=== PATIENT | male | born 1990 | race Caucasian/White ===

== ENCOUNTER 2016-08-25 15:47 | Inpatient (IN) | payer OTHER ==
--- NOTE | ~2016-08-25 | DS ---
Unit #: [id number] #: [id number] Patient: KELLY DIA [id number] [address] [address] [id number] MR#: [id number] NAME: KELLY DIA. ROOM: 241 Age: 25 Sex: M Admission Date: 08/26/2016 : 1990 Discharge Date: Attending Physician: Geri Dawn M.D. Primary Care Physician: No Primary Care Physician DISCHARGE SUMMARY DISCHARGE DIAGNOSES 1. Bilateral leg cellulitis. 2. Alcohol abuse. 3. Likely alcoholic hepatitis. 4. Leg swelling, likely from cellulitis: Rule out alcohol-related liver disease including cirrhosis. Needs outpatient followup. 5. Bilateral thumb numbness, likely from alcohol abuse. 6. Hypokalemia. 7. Thrombocytopenia. CONSULTATION None. PROCEDURES None. LAB DATA Sodium 138, potassium 3.7, creatinine 0.8. Liver enzymes normal at the time of discharge. Albumin 3.2, WBC 7.2, hemoglobin 13.7, platelets 139. Ultrasound of the legs negative for DVT. Vitamin B12 258, lactic acid 1.6. Urine drug screen negative. ALLERGIES None. DISCHARGE MEDICATIONS 1. Keflex 500 p.o. three times daily. 2. Lasix 20 mg p.o. daily p.r.n. swelling. HOSPITALIZATION COURSE 40-year-old admitted because of leg swelling and erythema. Bilateral leg cellulitis and started on vancomycin and Zosyn: Currently, leg swelling and erythema present. Continue with Keflex for five more days. Leg swelling, likely alcoholic liver disease including cirrhosis: Patient will receive Lasix. Liver enzymes normal. Follow with outpatient PCP with results and follow up and treatment. Unit #: [id number] #: [id number] Patient: KELLY DIA Bilateral hand and leg numbness, likely from alcohol abuse: Vitamin B12 level normal. Hypokalemia: Replace with p.o. potassium. Discharge home. Follow with family physician in one to two weeks time for bilateral leg cellulitis and liver disease. Dictated by... Kaitlyn Robison/christel TD: 08/27/2016 11:35 JOB #: [id number] DISCHARGE SUMMARY Page 1 of 1 X Geri Dawn MD DISCHARGE SUMMARY
--- NOTE | ~2016-08-25 | US84 ---
[id number] [address] [address] [id number] I MR#: [id number] Acc #: [id number] NAME: KELLY DIA : 1990 SEX: M STUDY DATE/TIME: 08/25/2016 19:34 UNIT: SEDOF ROOM: [facility] STUDY DESCRIPTION: US LE Veins Complete Micheal Stdy Attending Physician: Makenna Rankin M.D. Ordering Physician: Physician Non-Staff Primary Care Physician: Primary Care Physician No MEDICAL IMAGING REPORT This report is preliminary unless electronic signature is present. EXAM Bilateral lower extremity venous ultrasound HISTORY Bilateral ankle pain and redness and swelling for 6 months. TECHNIQUE Venous ultrasound examination of both lower extremities was performed using grayscale, spectral Doppler and color flow Doppler imaging. FINDINGS The examination is negative. There is no evidence of deep venous thrombus from the groin to the lower calf bilaterally. Visualized greater saphenous veins are also patent. IMPRESSION Negative examination. No evidence of lower extremity deep venous thrombosis. Dictated by... Angel Kilpatrick M.D. THIS IS AN ELECTRONICALLY VERIFIED REPORT Angel Kilpatrick M.D. at 08/26/2016 3:13 PM DFMargaret/caren TD: 08/26/2016 08:29 JOB #: [id number] MEDICAL IMAGING REPORT Page 1 of 1
--- NOTE | ~2016-08-25 | HP ---
Unit #: [id number] #: [id number] Patient: KELLY DIA [id number] [address] [address] [id number] I MR#: [id number] NAME: KELLY DIA. ROOM: 473 Age: 25 Sex: M Admission Date: 08/25/2016 : 1990 Attending Physician: Geri Dawn M.D. Primary Care Physician: No Primary Care Physician HISTORY AND PHYSICAL CHIEF COMPLAINT Bilateral leg swelling. HISTORY OF PRESENT ILLNESS 25-year-old with a history of severe alcohol abuse, admitted because of bilateral leg redness and swelling and pain. According to him, this started one day prior to admission, mostly ankle area and calf area, both legs. He did notice swelling since a few weeks. Currently, his pain is getting worse on ambulation, getting better with Percocet. Also, noticed redness over his ankle area since one day prior to admission. No insect bite. No fever, no chills. Has difficulty walking, pain while ambulating. Has ankle swelling since one day. No nausea, no vomiting, no diarrhea, no constipation. He has pain during urination. PAST MEDICAL HISTORY None. PAST SURGICAL HISTORY None. SOCIAL HISTORY Smokes one pack of cigarettes per day. He was a heavy alcohol, quit recently. No drug abuse. FAMILY HISTORY Negative for liver disease. ALLERGIES None. CURRENT HOME MEDICATIONS None. REVIEW OF SYSTEMS No headache, no visual changes. Complaining of numbness in both thumb areas and leg area chronically, likely from alcohol. Reviewed twelve point systems with him which are negative except as in HPI. PHYSICAL EXAMINATION VITAL SIGNS: Temperature 99, pulse 120, respirations 18, blood pressure 146/71. GENERAL: 25-year-old lying on bed, not in acute distress. Able to provide history. Alert and oriented x3. HEENT: Pupils equally reactive to light and accommodation. No pallor, no Unit #: [id number] #: [id number] Patient: KELLY DIA icterus. Dry mucosa present. NECK: Supple. HEART: S1, S2 heard. Regular rhythm. LUNGS: Clear to auscultation. No crackles, no rhonchi. ABDOMEN: Soft, nontender. Bowel sounds present. EXTREMITIES: Swelling present. Erythema present bilateral lower extremities near his calf area and ankle area. Pain on movement. NEUROLOGICAL: No focal neurological deficits. DIAGNOSTIC STUDIES IMAGING: Ultrasound of extremities negative for DVT. LABORATORY: Potassium 3.3, calcium 8.3, creatinine normal, WBC 12.4, hemoglobin 13.6, platelets 130. Urine drug screen negative. Urinalysis negative. D-dimer 225. ASSESSMENT AND PLAN 25-year-old admitted because of leg swelling and pain and redness. 1. Bilateral leg cellulitis: The patient was started on Zosyn and vancomycin. Blood cultures pending. 2. Alcohol abuse, likely with alcoholic hepatitis with mild elevation of liver enzymes, AST 27, ALT 44, alkaline phosphatase 109: Patient needs outpatient followup. 3. Bilateral hand and leg numbness, likely from alcohol abuse: I am going to check B12 level. 4. Hypokalemia: Replace with p.o. potassium. 5. Thrombocytopenia, likely secondary to alcohol abuse. Dictated by Kaitlyn Robison/christel TD: 08/26/2016 11:37 JOB #: [id number] HISTORY AND PHYSICAL Page 1 of 1 X Geri Dawn MD X HISTORY AND PHYSICAL
[~2016-08-25 15:47] MED LIST: AUGMENTIN875 MG PO; NO MEDICATIONS; PENICILLIN V P250 MG PO; VOLTAREN75 MG PO
[2016-08-25 16:30] LABS: BASOPHIL# 0.1 X10e3 (0-0.3); BASOPHIL% 0.7 % (0-2.5); EOSINOPHIL# 0.2 X10e3 (0-0.7); EOSINOPHIL% 0.9 % (0.0-7.0); HEMATOCRIT 44.3 % (38.0-50.0); LYMPHOCYTE# 2.8 X10e3 (1.0-3.5); LYMPHOCYTE% 14.5 % (17.0-45.0); MEAN CORPUSCULAR HEMOGLOBIN 30.5 PG (28-34); MEAN CORPUSCULAR HGB CONC 33.9 g/dL (30-36); MEAN PLATELET VOLUME 9.8 FL (6.5-11.5); MONOCYTE# 1.3 X10e3 (0-1.0); MONOCYTE% 6.9 % (3.0-12.0); NEUTROPHIL# 14.7 X10e3 (1.5-7.1); PLATELET COUNT 171 X10e3 (140-420); RED BLOOD COUNT 4.93 X10e (3.90-5.60); RED CELL DISTRIBUTION WIDTH 12.8 % (11.0-15.5)
[2016-08-25 16:33] LABS: DIFF IND NO
[2016-08-25 16:50] LABS: ALBUMIN SERUM 4.4 g/dL (3.5-5.0); BILIRUBIN,TOTAL 0.5 mg/dL (0.2-2.0); CALCIUM SERUM 8.8 mg/dL (8.4-10.2); CREATININE SERUM 0.8 mg/dL (0.6-1.4); GLOM FILT RATE Estimated 123.3 mL/min (>60); POTASSIUM 3.1 mmol/L (3.5-5.1); PROTEIN TOTAL SERUM 7.5 g/dL (6.0-8.3)
[2016-08-25 17:54] LABS: URINE SOURCE CLEAN CATCH
[2016-08-25 17:59] LABS: URINE APPEARANCE CLEAR; URINE BILIRUBIN NEG (NEG); URINE BLOOD NEG (NEG); URINE COLOR YELLOW; URINE GLUCOSE NEG (NORM); URINE KETONE TRACE (NEG); URINE LEUKOCYTE ESTERASE NEG (NEG); URINE NITRATE NEG (NEG); URINE PROTEIN NEG (NEG); URINE UROBILINOGEN 0.2 MG/DL (NORM)
[2016-08-25 18:03] LABS: MICRO INDICATED? NO
[2016-08-25 18:09] LABS: AMPHETAMINE NEG (NEG); BARBITURATES NEG (NEG); BENZODIAZEPINES NEG (NEG); COCAINE NEG (NEG); MARIJUANA NEG (NEG); OPIATES NEG (NEG); TRICYCLIC ANTIDEPRESSANTS NEG (NEG); U METHADONE NEG (NEG)
[2016-08-26 04:05] LABS: BASOPHIL# 0.1 X10e3 (0-0.3); BASOPHIL% 0.4 % (0-2.5); EOSINOPHIL# 0.2 X10e3 (0-0.7); EOSINOPHIL% 1.5 % (0.0-7.0); HEMATOCRIT 40.9 % (38.0-50.0); HEMOGLOBIN 13.6 gm/dL (13.0-16.0); LYMPHOCYTE# 2.5 X10e3 (1.0-3.5); LYMPHOCYTE% 20.6 % (17.0-45.0); MEAN CELL VOLUME 90.3 FL (83-96); MEAN CORPUSCULAR HEMOGLOBIN 30.1 PG (28-34); MEAN CORPUSCULAR HGB CONC 33.3 g/dL (30-36); MEAN PLATELET VOLUME 10.4 FL (6.5-11.5); MONOCYTE# 0.9 X10e3 (0-1.0); MONOCYTE% 7.5 % (3.0-12.0); NEUTROPHIL# 8.7 X10e3 (1.5-7.1); PLATELET COUNT 130 X10e3 (140-420); RED BLOOD COUNT 4.53 X10e (3.90-5.60); RED CELL DISTRIBUTION WIDTH 12.9 % (11.0-15.5); WHITE BLOOD COUNT 12.4 X10e3 (4.0-10.5)
[2016-08-26 04:06] LABS: DIFF IND NO
[2016-08-26 04:56] LABS: BUN/CREATININE RATIO 13.33; CALCIUM SERUM 8.3 mg/dL (8.4-10.2); CREATININE SERUM 0.6 mg/dL (0.6-1.4); GLOM FILT RATE Estimated 138.8 mL/min (>60); MAGNESIUM 1.8 mg/dL (1.6-3.0); POTASSIUM 3.3 mmol/L (3.5-5.1)
[2016-08-27 06:53] LABS: HEMATOCRIT 41.3 % (38.0-50.0); HEMOGLOBIN 13.7 gm/dL (13.0-16.0); MEAN CELL VOLUME 91.4 FL (83-96); MEAN CORPUSCULAR HEMOGLOBIN 30.2 PG (28-34); MEAN CORPUSCULAR HGB CONC 33.1 g/dL (30-36); MEAN PLATELET VOLUME 10.1 FL (6.5-11.5); RED BLOOD COUNT 4.52 X10e (3.90-5.60); RED CELL DISTRIBUTION WIDTH 12.8 % (11.0-15.5); WHITE BLOOD COUNT 7.2 X10e3 (4.0-10.5)
[2016-08-27 07:32] LABS: ALBUMIN SERUM 3.2 g/dL (3.5-5.0); BILIRUBIN,TOTAL 1.2 mg/dL (0.2-2.0); BUN/CREATININE RATIO 7.5; CALCIUM SERUM 8.5 mg/dL (8.4-10.2); CREATININE SERUM 0.8 mg/dL (0.6-1.4); GLOM FILT RATE Estimated 123.3 mL/min (>60); POTASSIUM 3.7 mmol/L (3.5-5.1); PROTEIN TOTAL SERUM 5.9 g/dL (6.0-8.3)
[2016-08-27] MEDS ORDERED: KEFLEX500 MG PO (12:53)
[2016-08-27] MEDS ORDERED: LASIX20 MG PO (12:53)
[2016-08-27 23:41] LABS: CHLAMYDIA TRACH Not Detected (Not Detected); N GONOR Not Detected (Not Detected)
== END 2016-08-27 14:30 | disposition home or self-care (01) | DRG 603 ==
LOC: SED 15:47 → SEDOF 22:38 → C2A 22:38 → C4C 22:38 → C2A 08-26 01:50 → SEDOF 08-26 01:50 → SED 08-26 01:50 → C2A 08-26 01:50 → SEDOF 08-26 01:55 → C4C 08-26 01:55 → C2A 08-26 11:38
PROVIDERS: Internal Medicine; Nurse Practitioner
DX: L03.116 Cellulitis of left lower limb (principal); D69.59 Other secondary thrombocytopenia; K70.10 Alcoholic hepatitis without ascites; L03.115 Cellulitis of right lower limb; F10.10 Alcohol abuse, uncomplicated; R20.0 Anesthesia of skin; E87.6 Hypokalemia; F17.210 Nicotine dependence, cigarettes, uncomplicated
CPT/HCPCS: 36415; 80048; 80053; 80202; 80307; 81003; 82607; 83605; 83735; 85025; 85027; 85379; 87040; 87491; 87591; 93970; 96374; 96375; 99285; J1650; J2270; J2405; J2543; J3370

== ENCOUNTER 2016-10-14 17:11 | Inpatient (IN) | payer OTHER ==
[~2016-10-14] VITALS: Ht 175.3 cm; Wt 102.1 kg
--- NOTE | ~2016-10-14 | DS ---
Unit #: [id number] #: [id number] Patient: KELLY DIA [id number] [facility] [address] [place] [address] [id number] I MR#: [id number] NAME: KELLY DIA. ROOM: [facility] Age: 26 Sex: M Admission Date: 10/14/2016 : 1990 Discharge Date: 10/17/2016 Attending Physician: Miles Patel M.D. Primary Care Physician: Primary Care Physician No DISCHARGE SUMMARY REASON FOR ADMISSION The patient is a 26-year-old white male, admitted to the [address] [place] [address] for detox. HOSPITAL COURSE The patient was admitted to the [address] [place] [address] and placed on routine detoxification protocol for alcohol and his stay in the hospital was a brief and uneventful once. With the completion of detox the patient was discharged on 10/17/2016 to enter "[facility]." DISCHARGE DIAGNOSES [place] I Alcohol use disorder. [place] II [place] III [place] IV [place] V DISPOSITION ON DISCHARGE No psychotropic or other medications were ordered at the time of discharge. Follow up will take place through the auspices of community mental health resource. PROGNOSIS The patient's prognosis is considered good. Dictated by... Miles Patel M.D. CB/malu TD: 10/18/2016 08:39 JOB #: [id number] Unit #: [id number] #: [id number] Patient: KELLY DIA DISCHARGE SUMMARY Page 1 of 1 X Miles Patel MD X DISCHARGE SUMMARY
--- NOTE | ~2016-10-14 | HP ---
Unit #: [id number] #: [id number] Patient: KELLY DIA [id number] [place] [address] [id number] I MR#: [id number] NAME: KELLY DIA. ROOM: [facility] Age: 26 Sex: M Admission Date: 10/14/2016 : 1990 Attending Physician: Miles Patel M.D. Admitting Physician: Miles Patel M.D. Primary Care Physician: Primary Care Physician No HISTORY AND PHYSICAL HISTORY OF PRESENT ILLNESS Kelly is a 26 year old male admitted to [facility] because of his abuse of alcohol. PAST MEDICAL HISTORY 1. Long history of alcohol abuse. 2. Obesity. PAST SURGICAL HISTORY Nothing reported. ALLERGIES Aloe. SOCIAL HISTORY Smokes 2 packs per day. Drinks at least a fifth of liquor on a daily basis, many times more. Denies illicit drug use. FAMILY HISTORY Medically noncontributory. REVIEW OF SYSTEMS CONSTITUTIONAL: No fever or chills. HEENT: Denies any sore throat, ear pain or runny nose. CARDIOVASCULAR: Denies chest pain, irregular heart rhythm or palpitations. CHEST: Denies shortness of breath or cough. No hemoptysis. GASTROINTESTINAL: Denies nausea, vomiting, diarrhea or chronic constipation. ENDOCRINE: Denies history of increased thirst or urination. No recent significant weight loss or gain. GENITOURINARY: Denies dysuria, frequency, or hematuria. SKIN: Denies any rashes. HEMATOLOGIC: Denies history of increased bleeding or bruising. MUSCULOSKELETAL: Denies any hot, swollen joints. No generalized muscle pain. NEUROLOGIC: Denies problems with vision or speech. No frequent, severe headaches. No numbness, tingling or weakness in any extremities. Denies loss of bladder or bowel control. CURRENT MEDICATIONS Detox protocol. PHYSICAL EXAMINATION Unit #: [id number] #: [id number] Patient: KELLY DIA GENERAL: Alert, well-nourished, in no apparent distress. VITAL SIGNS: Blood pressure 115/72, heart rate 80, respirations 16, temperature 98.6. WEIGHT: 225. HEIGHT: 5 feet 9 inches. SKIN: Warm and dry without rash or lesion. HEENT: Normocephalic. TMs not viewed. Oral and nasal passages clear. Conjunctivae clear. PERRLA. EOMs intact. NECK: Supple without lymphadenopathy or thyromegaly. HEART: Regular rate and rhythm without murmur. LUNGS: Clear. ABDOMEN: Soft, nontender. : Not done. EXTREMITIES: No evidence of cyanosis, clubbing or edema. Moves all without focal deficit. NEUROLOGICAL: Grossly within normal limits. Cranial Nerves: II: Visual bonner are intact. III, IV AND : Extraocular movements are intact. Pupils are equal, round and reactive to light. V: Facial sensation is grossly normal. VII: Facial movements and expression are normal. VIII: Auditory acuity grossly intact. IX, X: Uvula is midline. Phonation is normal. XI: Patient shrugs shoulders and turns head normally. XII: Tongue protrudes in the midline. Sensory and Motor Function: Sensory and motor sensation is grossly normal. Motor: moves all extremities well. Coordination: Gait is normal. Deep Tendon Reflexes: Intact. IMPRESSION Psychiatric admission. RECOMMENDATIONS PSYCHIATRIC: Per psychiatrist. MEDICAL: See no contraindication to participate in facility's activities. MEDICAL PROGNOSIS Good. MEDICAL CONDITION Stable. Dictated by... Niya Gupta P.A.-C. for Kaitlyn Rodriguez/luís TD: 10/15/2016 20:08 JOB #: [id number] Unit #: [id number] #: [id number] Patient: KELLY DIA HISTORY AND PHYSICAL Page 1 of 1 X Niya Gupta HISTORY AND PHYSICAL
--- NOTE | ~2016-10-14 | PA ---
Unit #: [id number] #: [id number] Patient: KELLY DIA [id number] [place] [address] [id number] I MR#: [id number] NAME: KELLY DIA. ROOM: 77 Age: 26 Sex: M Admission Date: 10/14/2016 : 1990 Date of Assessment: 10/15/2016 Attending Physician: Miles Patel M.D. Admitting Physician: Miles Patel M.D. Primary Care Physician: Primary Care Physician No PSYCHIATRIC ASSESSMENT IDENTIFYING INFORMATION The patient is a 26-year-old white male admitted to the [address] [place] [address] for alcohol detox. CHIEF COMPLAINT None given. INFORMANT(S) Patient, reliability is good. HISTORY OF PRESENT ILLNESS The patient is a 26-year-old single white male admitted after he had presented to this facility reporting increase of alcohol use and some depression. The patient was last hospitalized to this facility under the care of Dr. Mathis in August of this year. He hopes to gain access to "the [facility]" upon his discharge from this facility but was told to come to this facility for detox. The patient currently denies suicidal or homicidal ideation and denies any psychotic symptoms. He is presently unemployed. He worked up until yesterday for a [employer] company. For more complete history of present illness, please refer to previously dictated notes. PAST PSYCHIATRIC HISTORY Reviewed, no changes. PAST MEDICAL HISTORY Reviewed, no changes. MEDICATIONS None. ALLERGIES Aloe, cinnamon. FAMILY HISTORY Reviewed, no changes. SOCIAL HISTORY Reviewed, no changes. MENTAL STATUS EXAMINATION Examination at this time reveals the patient to be a well-developed well-nourished white male appearing his stated age. He is in no apparent Unit #: [id number] #: [id number] Patient: KELLY DIA physical distress at the time of examination. He is awake, alert, and oriented in all spheres. His mood is euthymic, his affect full range. Speech is generally well coherent. There are no gross deficits in memory or cognition noted. Intelligence is judged to be in the average range based on fund of knowledge. The patient is cooperative throughout the interview. He denies current suicidal or homicidal ideation of psychotic features. Judgment and insight appear to be intact. ASSETS AND LIABILITIES The patient's assets: Motivation for change. Liabilities: Lack of resources. DIAGNOSTIC IMPRESSION Alcohol use disorder. TREATMENT PLAN The patient remains hospitalized for safety and stabilization with completion of detox in 2 to 3 days. We will see that the patient is transferred for continuing residential treatment at the "[facility]." ESTIMATED LENGTH OF STAY 3 days. Dictated by... Miles Patel M.D. DIA/pete TD: 10/15/2016 14:50 JOB #: [id number] PSYCHIATRIC ASSESSMENT Page 1 of 1 X Miles Patel MD X PSYCHIATRIC ASSESSMENT
--- NOTE | ~2016-10-14 | PN ---
Unit #: [id number] #: [id number] Patient: KELLY DIA [id number] [facility] [address] [place] [address] [id number] I MR#: [id number] NAME: KELLY DIA ROOM: [facility] Age: 26 Sex: M Admission Date: 10/14/2016 : 1990 Attending Physician: Miles Patel M.D. Admitting Physician: Miles Patel M.D. Primary Care Physician: Primary Care Physician Lacie SORTO PROGRESS NOTES DATE 10/16/2016 DISCUSSION The patient is in bright spirits today. We plan to return him to "[facility]" tomorrow. Dictated by... Miles Patel M.D. CB/luís TD: 10/16/2016 15:03 JOB #: [id number] [facility] PROGRESS NOTES Page 1 of 1 X Miles Patel MD X PROGRESS NOTE
[~2016-10-14 17:11] MED LIST changes: +KEFLEX500 MG PO; +LASIX20 MG PO
[2016-10-15 09:55] LABS: BASOPHIL% 0.5 % (0-2.5); EOSINOPHIL# 0.3 X10e3 (0-0.7); EOSINOPHIL% 4.2 % (0.0-7.0); HEMATOCRIT 48.3 % (38.0-50.0); HEMOGLOBIN 16.5 gm/dL (13.0-16.0); LYMPHOCYTE# 2.2 X10e3 (1.0-3.5); LYMPHOCYTE% 29.4 % (17.0-45.0); MEAN CELL VOLUME 94.8 FL (83-96); MEAN CORPUSCULAR HEMOGLOBIN 32.4 PG (28-34); MEAN CORPUSCULAR HGB CONC 34.2 g/dL (30-36); MEAN PLATELET VOLUME 9.1 FL (6.5-11.5); MONOCYTE# 0.5 X10e3 (0-1.0); NEUTROPHIL# 4.5 X10e3 (1.5-7.1); NEUTROPHIL% 58.9 % (40-75); PLATELET COUNT 144 X10e3 (140-420); RED BLOOD COUNT 5.09 X10e (3.90-5.60); RED CELL DISTRIBUTION WIDTH 15.6 % (11.0-15.5); WHITE BLOOD COUNT 7.6 X10e3 (4.0-10.5)
[2016-10-15 09:56] LABS: DIFF IND NO
[2016-10-15 10:45] LABS: ALBUMIN SERUM 3.7 g/dL (3.5-5.0); BILIRUBIN,TOTAL 0.9 mg/dL (0.2-2.0); BUN/CREATININE RATIO 11.11; CREATININE SERUM 0.9 mg/dL (0.6-1.4); GLOM FILT RATE Estimated 116.6 mL/min (>60); POTASSIUM 4.2 mmol/L (3.5-5.1); PROTEIN TOTAL SERUM 6.4 g/dL (6.0-8.3)
[2016-10-16 09:36] LABS: URINE APPEARANCE CLEAR; URINE BILIRUBIN NEG (NEG); URINE BLOOD NEG (NEG); URINE COLOR YELLOW; URINE GLUCOSE NEG (NEG); URINE KETONE NEG (NEG); URINE LEUKOCYTE ESTERASE NEG (NEG); URINE NITRATE NEG (NEG); URINE PROTEIN NEG (NEG); URINE SPECIFIC GRAVITY 1.017 (1.003-1.035); URINE UROBILINOGEN 0.2 MG/DL (NEG)
[2016-10-16 10:43] LABS: AMPHETAMINE NEG (NEG); BARBITURATES NEG (NEG); BENZODIAZEPINES POS (NEG); COCAINE NEG (NEG); MARIJUANA NEG (NEG); OPIATES NEG (NEG); TRICYCLIC ANTIDEPRESSANTS NEG (NEG); U METHADONE NEG (NEG)
== END 2016-10-17 15:40 | DRG 897 ==
LOC: P1E 20:00
PROVIDERS: Specialist
PROC: HZ2ZZZZ Detoxification Services for Substance Abuse Treatment (ICD-10-PCS; principal; 2016-10-14)
DX: F10.10 Alcohol abuse, uncomplicated (principal); F17.210 Nicotine dependence, cigarettes, uncomplicated
CPT/HCPCS: 80053; 80307; 81003; 85025; 86592